=== PATIENT | female | born 1955 | race Caucasian/White ===

== ENCOUNTER 2019-11-22 17:09 | Emergency (ER) | payer OTHER ==
[~2019-11-22] VITALS: Ht 157.5 cm; Wt 95.3 kg
[2019-11-22] MEDS ORDERED: HUMALOG100 UNIT/1 SUBQ (17:39)
[2019-11-22] MEDS ORDERED: GLUCOPHAGE1000 MG PO (17:40)
[2019-11-22] MEDS ORDERED: LOVASTATIN 20 M20 MG PO (17:42)
[2019-11-22] MEDS ORDERED: IBUPROFEN200 MG PO (17:45)
[2019-11-22] MEDS ORDERED: OZEMPIC1 MG/0.75 SUBLING (17:47)
[2019-11-22] MEDS ORDERED: MOBIC7.5 MG PO (18:17)
[2019-11-22] MEDS ORDERED: FLEXERIL PO (18:17)
[2019-11-22] MEDS ORDERED: PRILOSEC OTC20 MG PO (18:17)
[2019-11-22] MEDS ORDERED: PREDNISONE 20 M20 MG PO (18:17)
[2019-11-22 18:52] LABS: URINE BILIRUBIN NEGATIVE (Negative); URINE BLOOD NEGATIVE (Negative); URINE CLARITY CLEAR; URINE COLOR YELLOW; URINE GLUCOSE-RANDOM* 3+ (Negative); URINE KETONES NEGATIVE (Negative); URINE LEUKOCYTES-REFLEX NEGATIVE (Negative); URINE NITRITE-REFLEX NEGATIVE (Negative); URINE PROTEIN (DIPSTICK) NEGATIVE (Negative); URINE UROBILINOGEN 0.2 E.U./dl (0.2-1.0)
[2019-11-22 19:03] VITALS: BP 129/56
== END 2019-11-22 19:09 | disposition home or self-care (01) ==
LOC: ER 17:09
PROVIDERS: Nurse Practitioner Family
DX: M54.41 Lumbago with sciatica, right side (principal); E11.9 Type 2 diabetes mellitus without complications; E78.00 Pure hypercholesterolemia, unspecified; G89.29 Other chronic pain; Z79.4 Long term (current) use of insulin; Z79.899 Other long term (current) drug therapy